=== PATIENT | female | born 1990 | race Caucasian/White ===

== ENCOUNTER 2019-02-11 11:27 | Outpatient (CLI) | payer MEDICAID, SELFPAY ==
[2019-02-11 13:32] LABS: ALT 22 U/L (12-78); AST 19 U/L (15-37); Albumin 3.3 g/dL (3.4-5.0); Alkaline Phosphatase 112 U/L (46-116); Anion Gap 11.9 mmol/L (3-11); BUN 11 mg/dL (7-18); Bilirubin, Total 0.4 mg/dL (0.2-1.0); CO2 23.1 mmol/L (21.0-32.0); CREATININE 0.62 mg/dL (0.55-1.02); Calcium 8.8 mg/dL (8.5-10.1); Chloride 106 mmol/L (98-107); Cholesterol 187 mg/dL (50-200); Glucose 85 mg/dL (70-100); HDL Cholesterol 62 mg/dL (40-60); LDL CHOLESTEROL 104 mg/dL (<100); Potassium 4.4 mmol/L (3.5-5.1); Sodium 141 mmol/L (136-145); Triglyceride 94 mg/dL (30-150)
== END 2019-02-11 11:47 ==
PROVIDERS: PCP Family Medicine; Visit Provider Family Medicine
DX: Z13.220 Encounter for screening for lipoid disorders (principal); Z13.228 Encounter for screening for other metabolic disorders
CPT/HCPCS: 36415; 80053; 80061; 83721

== ENCOUNTER 2019-02-16 13:47 | Emergency (ER) | payer MEDICAID, SELFPAY ==
[2019-02-16 13:56] VITALS: BP 133/77; PULSE 110; RESP 19; TEMP 36.6; O2SAT 96
--- NOTE | 2019-02-16 15:03 | DI.RAD_ITS ---
SYMPTOMS/DIAGNOSIS: LACERATION S/P PUNCHING WINDOW, ? FOREIGN BODY RIGHT FOREARM: No acute fracture or dislocation is seen. No radiopaque foreign bodies are seen in the soft tissues. IMPRESSION: No acute abnormality.
--- NOTE | 2019-02-16 15:09 | NUR.NOTE ---
pt states she has not taken any of her medications for 2 months Nursing Note:
--- NOTE | 2019-02-16 16:48 | W.ED.GENAD ---
Discharge Plan Disposition Patient Disposition: HOME Condition: Improving Discharge Details Chief Complaint: Laceration Clinical Impression: Laceration of forearm, right Primary Care Provider: Jason Otero ED Provider: Peter Connors Home Meds and New Rx's Prescriptions: No Action escitalopram oxalate 10 mg tablet 10 mg PO DAILY Qty: 30 RF: 3 buspirone 7.5 mg tablet 7.5 mg PO BID Qty: 60 RF: 3 valacyclovir 500 mg tablet 500 mg PO BID Qty: 6 RF: 3 dextroamphetamine-amphetamine [Adderall] 20 mg tablet 20 mg PO BID RF: 0 Discharge Instructions Instructions: Laceration (ED) Additional Instructions: Please keep dressing on for the next 48 hours and then keep wound clean and dry. Return immediately for any signs of infection. Otherwise return to emergency department in 12 to 14 days for suture removal. Referrals: [facility] Emergency Dept. [Outside] (Return in 12 to 14 days for suture removal. ) Discharge Data Discharge Date/Time-TO BE ENTERED AT DEPARTURE: 02/16/19 16:55 Medical Decision Making Patient presenting to the emergency department for chief complaint of laceration and right arm injury. She states that she was upset and punched a piece of glass which broke causing a laceration patient denies any suicidal ideations or homicidal ideations. Patient has a 6.5 cm laceration right forearm. Adipose tissue exposed otherwise deep structures are intact no muscle nerve or tendon damage is noted. other secondary minor abrasions and cuts to the dorsal aspects of the fingers and above the distal ulna. No palpable foreign body is noted but given the patient states she punched a glass. Radiological imaging performed to visualize radiopaque foreign body. No foreign body was noted. #9 sutures placed please see procedure note. Patient to return in 12 to 14 days for suture removal. Return precautions discussed. After discussion of diagnosis and plan of care patient has no further needs, questions, or concerns and states clear understanding to return to the emergency department for any worsening symptoms. HPI General Mode of arrival: ambulatory. Date/Time Provider Initiated Documentation: 02/16/19 13:59. Limitations to Documentation: no limitations. Information obtained by: patient and RN notes reviewed. History of Present Illness 29 year old F presents to the emergency department with the chief complaint of right arm laceration, described as severe, with intensity rated at 10. Quality is described as sharp, and is localized to the right and upper extremity. Patient reports no radiation. Patient started experiencing this hour(s) (1) and it has been constant. Patient notes no other symptoms.. Patient did receive the following treatments prior to arrival, none Related Data Home Medications Medication Instructions Recorded Confirmed buspirone 7.5 mg tablet 7.5 mg PO BID #60 tab 08/29/18 08/29/18 escitalopram 10 mg tablet 10 mg PO DAILY #30 tab 08/29/18 08/29/18 valacyclovir 500 mg tablet 500 mg PO BID #6 tab 08/29/18 08/29/18 dextroamphetamine-amphetamine 20 20 mg PO BID 12/10/18 mg tablet Previous Rx's Medication Instructions Recorded buspirone 7.5 mg tablet 7.5 mg PO BID #60 tab 08/29/18 escitalopram 10 mg tablet 10 mg PO DAILY #30 tab 08/29/18 valacyclovir 500 mg tablet 500 mg PO BID #6 tab 08/29/18 Allergies Allergy/AdvReac Type Severity Reaction Status Date / Time latex Allergy Unverified 02/16/19 14:01 General Stated Complaint: Laceration MAXINE: 3 Review of Systems Cardiovascular Denies syncope and Denies lightheadedness Musculoskeletal Denies deformity, Denies limited range of motion and Denies numbness Integumentary/Breasts Reports as per HPI Neurologic Denies syncope, Denies numbness and Denies paresthesias [facility] Medical History Borderline personality disorder (04/21/13) PTSD (post-traumatic stress disorder) Depression ADHD (attention deficit hyperactivity disorder) Asthma Alcoholism (Acute) Kidney infection Surgical History Hx of oral surgery (Acute) Family History Father Asthma Mother Borderline personality disorder Maternal Grandfather Alcohol abuse Depression Maternal Grandmother Alcohol abuse Social History Smoking/Tobacco Use Status: Former Tobacco Use Alcohol Intake: current Drug use: Current Sobriety Substance use type: former substance user Adopted: Yes Do you think of yourself as: straight/heterosexual Do you feel safe in your relationship?: Yes Exam Const General: cooperative and no acute distress Orientation: alert, awake and oriented x3 Limitations: mental status not altered Resp Effort & Inspection: normal respiratory effort and able to speak in complete sentences Cardio Rate: regular rate Rhythm: regular rhythm Neuro General: alert, awake, oriented x3, gait normal, tone normal, moves all extremities, normal light touch, pain and propioception and no focal motor deficits Motor: no movement abnormalities noted Sensory Exam: no sensory deficits noted Extrem General: normal exam except as noted Right upper extremity: elbow/forearm Details: laceration (6.5 cm ) and hand Details: abrasion Location: of the 3rd digit, of the 4th digit and of the 5th digit Course Vital Signs Temperature 36.6 C 02/16/19 13:56 Pulse 110 H 02/16/19 13:56 Respiratory Rate 02/16/19 13:56 Blood Pressure 133/77 02/16/19 13:56 Pulse Oximetry 96 02/16/19 13:56 Temperature 36.6 C 02/16/19 13:56 Temperature Source Temporal Artery Scan 02/16/19 13:56 Pulse 110 H 02/16/19 13:56 Respiratory Rate 19 02/16/19 13:56 Respiratory Effort 02/16/19 14:00 Blood Pressure 133/77 02/16/19 13:56 Blood Pressure Position Sitting 02/16/19 13:56 Pulse Oximetry 96 02/16/19 13:56 Oxygen Delivery Method Room Air 02/16/19 13:56 Oxygen Flow Rate 0 02/16/19 13:56 Pain Level 10 02/16/19 13:56 Procedures Laceration Laceration 1: Site: upper extremity Side (If applicable): right Size (cm): 6.5 Description: linear Depth: simple, single layer Local Anesthetic: Lidocaine 1% and with Epi Amount of anesthesia used (mL): 14 Pre-repair: wound explored, irrigated extensively and deep structures intact Skin layer closed with: nylon Size (cm): 3-0 Number of sutures: 9 Technique: simple, interrupted
[2019-02-16 16:52] VITALS: BP 100/45; PULSE 73; RESP 16; TEMP 37; O2SAT 100
--- NOTE | 2019-02-16 16:52 | ED.GENADUL_ITS ---
Discharge Plan Disposition Patient Disposition: HOME Condition: Improving Discharge Details Chief Complaint: Laceration Clinical Impression: Laceration of forearm, right Primary Care Provider: Jason Otero ED Provider: Peter Connors Home Meds and New Rx's Prescriptions: No Action escitalopram oxalate 10 mg tablet 10 mg PO DAILY Qty: 30 RF: 3 buspirone 7.5 mg tablet 7.5 mg PO BID Qty: 60 RF: 3 valacyclovir 500 mg tablet 500 mg PO BID Qty: 6 RF: 3 dextroamphetamine-amphetamine [Adderall] 20 mg tablet 20 mg PO BID RF: 0 Discharge Instructions Instructions: Laceration (ED) Additional Instructions: Please keep dressing on for the next 48 hours and then keep wound clean and dry. Return immediately for any signs of infection. Otherwise return to emergency department in 12 to 14 days for suture removal. Referrals: [facility] Emergency Dept. [Outside] (Return in 12 to 14 days for suture removal. ) Discharge Data Discharge Date/Time-TO BE ENTERED AT DEPARTURE: 02/16/19 16:55 Medical Decision Making Patient presenting to the emergency department for chief complaint of laceration and right arm injury. She states that she was upset and punched a piece of glass which broke causing a laceration patient denies any suicidal ideations or homicidal ideations. Patient has a 6.5 cm laceration right forearm. Adipose tissue exposed otherwise deep structures are intact no muscle nerve or tendon damage is noted. other secondary minor abrasions and cuts to the dorsal aspects of the fingers and above the distal ulna. No palpable foreign body is noted but given the patient states she punched a glass. Radiological imaging performed to visualize radiopaque foreign body. No foreign body was noted. #9 sutures placed please see procedure note. Patient to return in 12 to 14 days for suture removal. Return precautions discussed. After discussion of diagnosis and plan of care patient has no further needs, questions, or concerns and states clear understanding to return to the emergency department for any worsening symptoms. HPI General Mode of arrival: ambulatory . Date/Time Provider Initiated Documentation: 02/16/19 13:59 . Limitations to Documentation: no limitations . Information obtained by: patient and RN notes reviewed . History of Present Illness 29 year old F presents to the emergency department with the chief complaint of right arm laceration, described as severe, with intensity rated at 10. Quality is described as sharp, and is localized to the right and upper extremity. Patient reports no radiation. Patient started experiencing this hour(s) (1) and it has been constant. Patient notes no other symptoms.. Patient did receive the following treatments prior to arrival, none Related Data Home Medications Medication Instructions Recorded Confirmed buspirone 7.5 mg tablet 7.5 mg PO BID #60 tab 08/29/18 08/29/18 escitalopram 10 mg tablet 10 mg PO DAILY #30 tab 08/29/18 08/29/18 valacyclovir 500 mg tablet 500 mg PO BID #6 tab 08/29/18 08/29/18 dextroamphetamine-amphetamine 20 20 mg PO BID 12/10/18 mg tablet Previous Rx's Medication Instructions Recorded buspirone 7.5 mg tablet 7.5 mg PO BID #60 tab 08/29/18 escitalopram 10 mg tablet 10 mg PO DAILY #30 tab 08/29/18 valacyclovir 500 mg tablet 500 mg PO BID #6 tab 08/29/18 Allergies Allergy/AdvReac Type Severity Reaction Status Date / Time latex Allergy Unverified 02/16/19 14:01 General Stated Complaint: Laceration MAXINE: 3 Review of Systems Cardiovascular Denies syncope and Denies lightheadedness Musculoskeletal Denies deformity, Denies limited range of motion and Denies numbness Integumentary/Breasts Reports as per HPI Neurologic Denies syncope, Denies numbness and Denies paresthesias [facility] Medical History Borderline personality disorder (04/21/13) PTSD (post-traumatic stress disorder) Depression ADHD (attention deficit hyperactivity disorder) Asthma Alcoholism (Acute) Kidney infection Surgical History Hx of oral surgery (Acute) Family History Father Asthma Mother Borderline personality disorder Maternal Grandfather Alcohol abuse Depression Maternal Grandmother Alcohol abuse Social History Smoking/Tobacco Use Status: Former Tobacco Use Alcohol Intake: current Drug use: Current Sobriety Substance use type: former substance user Adopted: Yes Do you think of yourself as: straight/heterosexual Do you feel safe in your relationship?: Yes Exam Const General: cooperative and no acute distress Orientation: alert, awake and oriented x3 Limitations: mental status not altered Resp Effort & Inspection: normal respiratory effort and able to speak in complete sentences Cardio Rate: regular rate Rhythm: regular rhythm Neuro General: alert, awake, oriented x3, gait normal, tone normal, moves all extremities, normal light touch, pain and propioception and no focal motor deficits Motor: no movement abnormalities noted Sensory Exam: no sensory deficits noted Extrem General: normal exam except as noted Right upper extremity: elbow/forearm Details: laceration (6.5 cm ) and hand Details: abrasion Location: of the 3rd digit, of the 4th digit and of the 5th digit Course Vital Signs Temperature 36.6 C 02/16/19 13:56 Pulse 110 H 02/16/19 13:56 Respiratory Rate 02/16/19 13:56 Blood Pressure 133/77 02/16/19 13:56 Pulse Oximetry 96 02/16/19 13:56 Temperature 36.6 C 02/16/19 13:56 Temperature Source Temporal Artery Scan 02/16/19 13:56 Pulse 110 H 02/16/19 13:56 Respiratory Rate 19 02/16/19 13:56 Respiratory Effort 02/16/19 14:00 Blood Pressure 133/77 02/16/19 13:56 Blood Pressure Position Sitting 02/16/19 13:56 Pulse Oximetry 96 02/16/19 13:56 Oxygen Delivery Method Room Air 02/16/19 13:56 Oxygen Flow Rate 0 02/16/19 13:56 Pain Level 10 02/16/19 13:56 Procedures Laceration Laceration 1: Site: upper extremity Side (If applicable): right Size (cm): 6.5 Description: linear Depth: simple, single layer Local Anesthetic: Lidocaine 1% and with Epi Amount of anesthesia used (mL): 14 Pre-repair: wound explored, irrigated extensively and deep structures intact Skin layer closed with: nylon Size (cm): 3-0 Number of sutures: 9 Technique: simple, interrupted
== END 2019-02-16 16:55 | disposition home or self-care (01) ==
PROVIDERS: Emergency Provider Nurse Practitioner Family; PCP Family Medicine
DX: S51.811A Laceration without foreign body of right forearm, initial encounter (principal); W25.XXXA Contact with sharp glass, initial encounter
CPT/HCPCS: 12002; 73090

== ENCOUNTER 2019-02-27 10:20 | Emergency (ER) | payer MEDICAID, SELFPAY ==
[2019-02-27 10:24] VITALS: BP 118/70; PULSE 78; RESP 18; TEMP 36.5; O2SAT 97
--- NOTE | 2019-02-27 10:32 | ED.GENADUL_ITS ---
Discharge Plan Disposition Patient Disposition: HOME Condition: Improving Discharge Details Chief Complaint: SutureRem Clinical Impression: Visit for suture removal Primary Care Provider: Jason Otero ED Provider: Trey Dixon Home Meds and New Rx's Prescriptions: Continued escitalopram oxalate 10 mg tablet 10 mg PO DAILY Qty: 30 RF: 3 buspirone 7.5 mg tablet 7.5 mg PO BID Qty: 60 RF: 3 valacyclovir 500 mg tablet 500 mg PO BID Qty: 6 RF: 3 dextroamphetamine-amphetamine [Adderall] 20 mg tablet 20 mg PO BID RF: 0 Discharge Instructions Additional Instructions: Continue all regular medications. May use Band-Aid for additional 3 to 5 days time if needed. Resume normal routine and activities Medical Decision Making 29-year-old female presents for uneventful suture removal. The wound is well-appearing and she is in no acute distress. Sutures removed, dressing placed, patient stable for discharge to home. HPI General Mode of arrival: ambulatory . Date/Time Provider Initiated Documentation: 02/27/19 10:22 . Limitations to Documentation: no limitations . Information obtained by: patient . History of Present Illness 29 year old F presents to the emergency department with the chief complaint of Suture removal, no complaints, wound healing well, described as mild, Patient did receive the following treatments prior to arrival, none Related Data Home Medications Medication Instructions Recorded Confirmed buspirone 7.5 mg tablet 7.5 mg PO BID #60 tab 08/29/18 08/29/18 escitalopram 10 mg tablet 10 mg PO DAILY #30 tab 08/29/18 08/29/18 valacyclovir 500 mg tablet 500 mg PO BID #6 tab 08/29/18 08/29/18 dextroamphetamine-amphetamine 20 20 mg PO BID 12/10/18 mg tablet Previous Rx's Medication Instructions Recorded buspirone 7.5 mg tablet 7.5 mg PO BID #60 tab 08/29/18 escitalopram 10 mg tablet 10 mg PO DAILY #30 tab 08/29/18 valacyclovir 500 mg tablet 500 mg PO BID #6 tab 08/29/18 Allergies Allergy/AdvReac Type Severity Reaction Status Date / Time latex Allergy Unverified 02/27/19 10:28 General Stated Complaint: SutureRem MAXINE: 5 Review of Systems Review of Systems No fever, discharge, redness. 4 systems reviewed and otherwise [facility] Medical History Borderline personality disorder (04/21/13) PTSD (post-traumatic stress disorder) Depression ADHD (attention deficit hyperactivity disorder) Asthma Alcoholism (Acute) Kidney infection Surgical History Hx of oral surgery (Acute) Family History Father Asthma Mother Borderline personality disorder Maternal Grandfather Alcohol abuse Depression Maternal Grandmother Alcohol abuse Social History Smoking/Tobacco Use Status: Former Tobacco Use Alcohol Intake: current Drug use: Current Sobriety Substance use type: former substance user Adopted: Yes Do you think of yourself as: straight/heterosexual Do you feel safe in your relationship?: Yes Exam Narrative Exam Narrative: GEN: awake, alert, oriented 3. Pleasant, well groomed, interactive. HEAD: Normocephalic, atraumatic ENT: Mucous membranes moist, oropharynx unremarkable, External ear exam unremarkable EYES: PERRL, EOMI NECK: Full ROM, no KAMARI, no menigismus EXT: Full ROM, no edema, no rash. The right forearm has a healing approximately 3inch laceration without diastases. No erythema or discharge present Neuro: Grossly normal neurologic exam, conversant, interactive. Psych: Speech fluent, thoughts congruent, affect normal Course Vital Signs Temperature 36.5 C 02/27/19 10:24 Pulse 78 02/27/19 10:24 Respiratory Rate 18 02/27/19 10:24 Blood Pressure 118/70 02/27/19 10:24 Pulse Oximetry 97 02/27/19 10:24 Temperature 36.5 C 02/27/19 10:24 Temperature Source Skin 02/27/19 10:24 Pulse 78 02/27/19 10:24 Respiratory Rate 18 02/27/19 10:24 Blood Pressure 118/70 02/27/19 10:24 Blood Pressure Position Sitting 02/27/19 10:24 Pulse Oximetry 97 02/27/19 10:24 Oxygen Delivery Method Room Air 02/27/19 10:24 Oxygen Flow Rate 0 02/27/19 10:24
== END 2019-02-27 10:40 | disposition home or self-care (01) ==
PROVIDERS: Emergency Provider Emergency Medicine; PCP Family Medicine
DX: S51.82 Laceration with foreign body of forearm (principal); X58.XXXD Exposure to other specified factors, subsequent encounter; Z48.02 Encounter for removal of sutures

== ENCOUNTER 2019-03-02 16:18 | Outpatient (REF) | payer MEDICAID, SELFPAY ==
--- NOTE | 2019-03-02 16:00 | PAPFT_PTH ---
PATIENT: Kristen Santana LOC: [facility] U#:[id number] AGE/SX: 29/F ROOM: RE03/02/[address]: Jason Otero DO : 1990 BED: DIS: 03/02/2019 SPEC #: [id number] RECD: 03/02/19 18:05 STATUS: MINGO REQ #: [id number] KEVIN: 03/02/19 16:[address]: Oliva Aragon DEPT: [facility] Cytology RECD BY: Poonam Bustamante ENTERED: 03/02/19 18:05 SP TYPE: PAPFT OTHR DR: Jason Otero DO Tissues: 1 - CX/ENDOCX FOR PAP SMEARS Procedures: PAP THIN PREP/UVM Screening HPV DNA PROBE Comments: [id number] (CHLAMYDIA/GC) @ Ordering doctor for PAPFT edited from [place] to [place] @ by SARMAD at 03/09/19 1503 @ Ordering doctor for HPV edited from [place] to [place] @ by SARMAD at 03/09/19 1503 @ Submitting doctor edited from [place] to [place] @ by LABCASSANDRA at 03/09/19 1505
[2019-03-03 14:26] LABS: Chlamydia Result Negative; GC Result Negative; Specimen Description SEE COMMENTS
== END 2019-03-02 16:38 ==
LOC: LBN 16:18
PROVIDERS: PCP Family Medicine; Visit Provider Family Medicine
DX: Z11.3 Encounter for screening for infections with a predominantly sexual mode of transmission (principal); Z12.4 Encounter for screening for malignant neoplasm of cervix; Z11.51 Encounter for screening for human papillomavirus (HPV)
CPT/HCPCS: 87491; 87591; 88142; 87624

== ENCOUNTER 2019-03-12 01:32 | Outpatient (CLI) | payer MEDICAID, SELFPAY ==
--- NOTE | 2019-03-12 11:00 | SATEXT_ITS ---
Assessment: Kristen presents for nutritional counseling to improve her diet. She reports that she eats only processed food and she does very little cooking. She states that she is able to do some simple cooking. She eats Froot Loops or Honey Nut Cheerios for breakfast with whole milk. She has processed chicken or hot pockets for lunch, and she may just have cereal again for dinner or her boyfriend may cook. Nutritional Diagnosis: Poor nutritional quality of life related to knowledge deficit Intervention: We came up with a list of healthy foods that she likes and thus a meal plan of easy, budget friendly meals. Provided several easy, minimal prep recipes as well. Monitoring and Evaluation: Kristen has my contact information and may follow up with me at any time. Thank you for the referral. Total time spent with patient was 29 minutes.
== END 2019-03-12 01:52 ==
PROVIDERS: PCP Family Medicine; Visit Provider Dietitian, Registered
DX: E66.3 Overweight (principal); Z68.37 Body mass index [BMI] 37.0-37.9, adult; Z71.3 Dietary counseling and surveillance
CPT/HCPCS: 97802

== ENCOUNTER 2019-04-21 19:52 | Emergency (ER) | payer MEDICAID, SELFPAY ==
[2019-04-21 20:03] VITALS: BP 120/75; PULSE 99; RESP 20; TEMP 37.2; O2SAT 98
--- NOTE | 2019-04-21 20:22 | W.ED.GENAD ---
Discharge Plan Disposition Patient Disposition: [facility] Condition: Stable Discharge Details Chief Complaint: PsychEval Clinical Impression: Depression Primary Care Provider: Jason Otero ED Provider: Estuardo Clark Home Meds and New Rx's Prescriptions: No Action buspirone 7.5 mg tablet 7.5 mg PO BID Qty: 60 RF: 3 escitalopram oxalate 20 mg tablet 20 mg PO DAILY Qty: 90 RF: 0 dextroamphetamine-amphetamine [Adderall] 20 mg tablet 20 mg PO BID RF: 0 valacyclovir 500 mg tablet 500 mg PO BID PRNRF: 0 Discharge Data Discharge Date/Time-TO BE ENTERED AT DEPARTURE: 04/22/19 11:13 Medical Decision Making <Karan Wagner MD - Last Filed: 04/27/19 16:02> 29 yo female with previous hx of depression comes in with 1 week of increased depression and tonight had thoughts of wanting to cut her self to harm her and was brought here. Didn't actually make attempt to harm herself. She denies any fevers or infectious symptoms, no unexplained weight loss or night sweats, no findings on history or physical exam (normal neuro exam, steady gait) to suggest underlying medical causes for her increased depression such as infection or endocrine abnormality. She has hx of this and has been hospitalized in the past for her depression. She is currently reading a 0 on a breathlyzer and is clinically not intoxicated or under the influence of drugs and denies drug use. Will have mental health evaluate as she is medically cleared labs show nonspecific mild leukocytosis of 13 without infectious symptoms, do not feel this requires further w/u at this time. Mild anion gap of 13 as well likely from a mild dehydration as she was outside not drinking much fluid today. She has seen mental health and they are reaching out to hospitals Differential Diagnosis depression, si, ptsd, personality disorder Lab Data Lab results reviewed: Yes I reviewed the patient's lab results. <Estuardo Clark DO - Last Filed: 04/22/19 08:41> The case was signed out to me by my colleague Karan Wagner. Patient remained stable. We are pending Dr. gallardo for transfer at that time. [place] nurse practitioner Angelo Nguyen is contacted us, and I discussed the case in full with her. Patient will be transferred [facility] and admitted under . I have extensively reviewed the treatment plan with the patient. I have addressed all patient concerns at this time. I have also discussed the plan with the admitting physician and they agree with the current assessment and plan and have agreed to assume responsibility for the patient. All parties demonstrate verbal understanding and agreement with our assessment and plan at this time. Patient is still voluntary at this time. At time of transfer the patient was reassessed and continued to demonstrate current medical stability. No signs of acute respiratory distress requiring intubation, hemodynamic instability requiring pressor support, or rapidly declining mental status. The patient is stable for transport. HPI <Karan Wagner MD - Last Filed: 04/27/19 16:02> General Mode of arrival: EMS. Date/Time Provider Initiated Documentation: 04/21/19 20:02. Limitations to Documentation: no limitations. Information obtained by: patient. History of Present Illness 29 year old F presents to the emergency department with the chief complaint of depression, described as moderate, Patient reports no radiation. Patient started experiencing this week(s) (1) No relieving factors improve symptom(s), No exacerbating factors reported . Patient did receive the following treatments prior to arrival, none Related Data Home Medications Medication Instructions Recorded Confirmed buspirone 7.5 mg tablet 7.5 mg PO BID #60 tab 08/29/18 04/21/19 dextroamphetamine-amphetamine 20 20 mg PO BID 12/10/18 04/21/19 mg tablet escitalopram 20 mg tablet 20 mg PO DAILY #90 tab 03/02/19 04/21/19 valacyclovir 500 mg PO BID PRN 04/21/19 04/21/19 Previous Rx's Medication Instructions Recorded buspirone 7.5 mg tablet 7.5 mg PO BID #60 tab 08/29/18 escitalopram 20 mg tablet 20 mg PO DAILY #90 tab 03/02/19 Allergies Allergy/AdvReac Type Severity Reaction Status Date / Time latex Allergy Verified 03/02/19 15:05 General Stated Complaint: PsychEval MAXINE: 2 Review of Systems <Karan Wagner MD - Last Filed: 04/27/19 16:02> Review of Systems All systems reviewed & are unremarkable except as noted in HPI and below Constitutional Denies chills, Denies fever(s) and Denies weakness Cardiovascular Denies chest pain and Denies dyspnea Respiratory Denies cough and Denies dyspnea Gastrointestinal Denies abdominal pain, Denies nausea and Denies vomiting Neurologic Denies weakness PFSH <Karan Wagner MD - Last Filed: 04/27/19 16:02> Medical History Borderline personality disorder (04/21/13) PTSD (post-traumatic stress disorder) Depression ADHD (attention deficit hyperactivity disorder) Asthma Alcoholism (Acute) Kidney infection Surgical History H/O tubal ligation (Inactive ~01/2017) Hx of oral surgery (Acute) Social History Smoking/Tobacco Use Status: Former Tobacco Use Tobacco: How many years used: 20 Alcohol Intake: current Alcohol Intake frequency: holidays/special occasions only Alcohol type: beer Drug use: Current Sobriety Substance use type: former substance user Details: 1 24 oz twisted tea, 1 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 Adopted: Yes Household members: significant other and children Number of Children: 1 Communication Needs: Corrective Lenses Education Level: high school current occupation: disabled Do you think of yourself as: straight/heterosexual What is your relationship status?: living with partner Panel score (0-1 are the most socially isolated patients): 1 What type of physical activity do you participate in: none Seatbelt use: always Drive intox or ride w/intox cement truck driver: No Water heater temp set <120 deg: Yes Working smoke detector in home: Yes Carbon monox detector in home: Yes Do you feel safe at home: Yes Do you feel safe in your relationship?: Yes Victim of physical abuse: No Victim of emotional abuse: No Victim of sexual abuse: No Exam <Karan Wagner MD - Last Filed: 04/27/19 16:02> Const General: no acute distress Orientation: alert HENMT Head: normal to inspection Ears: external ears normal General nose exam: external nose normal Mouth: moist mucous membranes Eyes General: appearance normal, both eyes and all related structures Neck Neck: normal visual inspection Resp Effort & Inspection: normal respiratory effort and able to speak in complete sentences Cardio Rate: regular rate Skin General skin exam: no rashes or lesions noted Neuro General: alert and oriented x3 Extrem General: normal to inspection Psych Appearance: well kempt Mental Status: mental status grossly normal Course <Karan Wagner MD - Last Filed: 04/27/19 16:02> Vital Signs Temperature 37.2 C 04/21/19 20:03 Pulse 99 H 04/21/19 20:03 Respiratory Rate 20 04/21/19 20:03 Blood Pressure 120/75 04/21/19 20:03 Pulse Oximetry 98 04/21/19 20:03 Temperature 37.2 C 04/21/19 20:03 Temperature Source Temporal Artery Scan 04/21/19 20:03 Pulse 99 H 04/21/19 20:03 Respiratory Rate 20 04/21/19 20:03 Respiratory Effort Non-Labored 04/21/19 20:07 Blood Pressure 120/75 04/21/19 20:03 Blood Pressure Position Sitting 04/21/19 20:03 Pulse Oximetry 98 04/21/19 20:03 Pain Level 0 04/21/19 20:03 Lab/Test Results Lab/Test Results: POC- Test(urine) Negative Sign Out <Karan Wagner MD - Last Filed: 04/27/19 16:02> Sign Out Data: Sign Out Comment: pending voluntary psychiatric bed placement Last updated by Karan Wagner MD at 04/22/19 04:35
--- NOTE | 2019-04-21 20:26 | ED.GENADUL_ITS ---
Discharge Plan Disposition Patient Disposition: [facility] Condition: Stable Discharge Details Chief Complaint: PsychEval Clinical Impression: Depression Primary Care Provider: Jason Otero ED Provider: Estuardo Clark Home Meds and New Rx's Prescriptions: No Action buspirone 7.5 mg tablet 7.5 mg PO BID Qty: 60 RF: 3 escitalopram oxalate 20 mg tablet 20 mg PO DAILY Qty: 90 RF: 0 dextroamphetamine-amphetamine [Adderall] 20 mg tablet 20 mg PO BID RF: 0 valacyclovir 500 mg tablet 500 mg PO BID PRNRF: 0 Discharge Data Discharge Date/Time-TO BE ENTERED AT DEPARTURE: 04/22/19 11:13 Medical Decision Making <Karan Wagner MD - Last Filed: 04/27/19 16:02> 29 yo female with previous hx of depression comes in with 1 week of increased depression and tonight had thoughts of wanting to cut her self to harm her and was brought here. Didn't actually make attempt to harm herself. She denies any fevers or infectious symptoms, no unexplained weight loss or night sweats, no findings on history or physical exam (normal neuro exam, steady gait) to suggest underlying medical causes for her increased depression such as infection or endocrine abnormality. She has hx of this and has been hospitalized in the past for her depression. She is currently reading a 0 on a breathlyzer and is clinically not intoxicated or under the influence of drugs and denies drug use. Will have mental health evaluate as she is medically cleared labs show nonspecific mild leukocytosis of 13 without infectious symptoms, do not feel this requires further w/u at this time. Mild anion gap of 13 as well likely from a mild dehydration as she was outside not drinking much fluid today. She has seen mental health and they are reaching out to hospitals Differential Diagnosis depression, si, ptsd, personality disorder Lab Data Lab results reviewed: Yes I reviewed the patient's lab results. <Estuardo Clark DO - Last Filed: 04/22/19 08:41> The case was signed out to me by my colleague Karan Wagner. Patient remained stable. We are pending Dr. gallardo for transfer at that time. [place] nurse practitioner Angelo Nguyen is contacted us, and I discussed the case in full with her. Patient will be transferred [facility] and admitted under . I have extensively reviewed the treatment plan with the patient. I have addressed all patient concerns at this time. I have also discussed the plan with the admitting physician and they agree with the current assessment and plan and have agreed to assume responsibility for the patient. All parties demonstrate verbal understanding and agreement with our assessment and plan at this time. Patient is still voluntary at this time. At time of transfer the patient was reassessed and continued to demonstrate current medical stability. No signs of acute respiratory distress requiring intubation, hemodynamic instability requiring pressor support, or rapidly declining mental status. The patient is stable for transport. HPI <Karan Wagner MD - Last Filed: 04/27/19 16:02> General Mode of arrival: EMS . Date/Time Provider Initiated Documentation: 04/21/19 20:02 . Limitations to Documentation: no limitations . Information obtained by: patient . History of Present Illness 29 year old F presents to the emergency department with the chief complaint of depression, described as moderate, Patient reports no radiation. Patient started experiencing this week(s) (1) No relieving factors improve symptom(s), No exacerbating factors reported . Patient did receive the following treatments prior to arrival, none Related Data Home Medications Medication Instructions Recorded Confirmed buspirone 7.5 mg tablet 7.5 mg PO BID #60 tab 08/29/18 04/21/19 dextroamphetamine-amphetamine 20 20 mg PO BID 12/10/18 04/21/19 mg tablet escitalopram 20 mg tablet 20 mg PO DAILY #90 tab 03/02/19 04/21/19 valacyclovir 500 mg PO BID PRN 04/21/19 04/21/19 Previous Rx's Medication Instructions Recorded buspirone 7.5 mg tablet 7.5 mg PO BID #60 tab 08/29/18 escitalopram 20 mg tablet 20 mg PO DAILY #90 tab 03/02/19 Allergies Allergy/AdvReac Type Severity Reaction Status Date / Time latex Allergy Verified 03/02/19 15:05 General Stated Complaint: PsychEval MAXINE: 2 Review of Systems <Karan Wagner MD - Last Filed: 04/27/19 16:02> Review of Systems All systems reviewed & are unremarkable except as noted in HPI and below Constitutional Denies chills, Denies fever(s) and Denies weakness Cardiovascular Denies chest pain and Denies dyspnea Respiratory Denies cough and Denies dyspnea Gastrointestinal Denies abdominal pain, Denies nausea and Denies vomiting Neurologic Denies weakness PFSH <Karan Wagner MD - Last Filed: 04/27/19 16:02> Medical History Borderline personality disorder (04/21/13) PTSD (post-traumatic stress disorder) Depression ADHD (attention deficit hyperactivity disorder) Asthma Alcoholism (Acute) Kidney infection Surgical History H/O tubal ligation (Inactive ~01/2017) Hx of oral surgery (Acute) Social History Smoking/Tobacco Use Status: Former Tobacco Use Tobacco: How many years used: 20 Alcohol Intake: current Alcohol Intake frequency: holidays/special occasions only Alcohol type: beer Drug use: Current Sobriety Substance use type: former substance user Details: 1 24 oz twisted tea, 1 24oz bud light HR COORDINATOR Adopted: Yes Household members: significant other and children Number of Children: 1 Communication Needs: Corrective Lenses Education Level: high school current occupation: disabled Do you think of yourself as: straight/heterosexual What is your relationship status?: living with partner Panel score (0-1 are the most socially isolated patients): 1 What type of physical activity do you participate in: none Seatbelt use: always Drive intox or ride w/intox vending route driver: No Water heater temp set <120 deg: Yes Working smoke detector in home: Yes Carbon monox detector in home: Yes Do you feel safe at home: Yes Do you feel safe in your relationship?: Yes Victim of physical abuse: No Victim of emotional abuse: No Victim of sexual abuse: No Exam <Karan Wagner MD - Last Filed: 04/27/19 16:02> Const General: no acute distress Orientation: alert HENMT Head: normal to inspection Ears: external ears normal General nose exam: external nose normal Mouth: moist mucous membranes Eyes General: appearance normal, both eyes and all related structures Neck Neck: normal visual inspection Resp Effort & Inspection: normal respiratory effort and able to speak in complete sentences Cardio Rate: regular rate Skin General skin exam: no rashes or lesions noted Neuro General: alert and oriented x3 Extrem General: normal to inspection Psych Appearance: well kempt Mental Status: mental status grossly normal Course <Karan Wagner MD - Last Filed: 04/27/19 16:02> Vital Signs Temperature 37.2 C 04/21/19 20:03 Pulse 99 H 04/21/19 20:03 Respiratory Rate 20 04/21/19 20:03 Blood Pressure 120/75 04/21/19 20:03 Pulse Oximetry 98 04/21/19 20:03 Temperature 37.2 C 04/21/19 20:03 Temperature Source Temporal Artery Scan 04/21/19 20:03 Pulse 99 H 04/21/19 20:03 Respiratory Rate 20 04/21/19 20:03 Respiratory Effort Non-Labored 04/21/19 20:07 Blood Pressure 120/75 04/21/19 20:03 Blood Pressure Position Sitting 04/21/19 20:03 Pulse Oximetry 98 04/21/19 20:03 Pain Level 0 04/21/19 20:03 Lab/Test Results Lab/Test Results: POC- Test(urine) Negative Sign Out <Karan Wagner MD - Last Filed: 04/27/19 16:02> Sign Out Data: Sign Out Comment: pending voluntary psychiatric bed placement Last updated by Karan Wagner MD at 04/22/19 04:35
[2019-04-21 20:35] LABS: Abs Immature Grans 0.02 k/cumm (0.0-0.09); Absolute Basophil Count 0.03 k/cumm (0.0-0.2); Absolute Eosinophil Count 0.05 k/cumm (0.0-0.7); Absolute Lymphocyte Count 2.97 k/cumm (1.2-3.4); Absolute Neutrophil Count 9.53 k/cumm (1.2-6.7); Basophils % 0.2; Eosinophils % 0.4; HCT 38.9 % (36.0-46.0); HGB 12.8 g/dL (12.0-15.5); Immature Grans % 0.1; Mean Corp. HGB Concentration 32.9 g/dL (32.0-36.0); Mean Corpuscular Hemoglobin 27.6 pg (27.0-33.0); Mean Platelet Volume 10.3 fL (8.0-11.0); Monocytes % 6.7; Neutrophils % 70.6; Platelet Count 393 x1000/uL (130-400); RBC 4.63 m/cumm (4.00-5.20); RBC Distribution Width 14.6 % (11.7-14.6)
[2019-04-21 20:41] LABS: Bilirubin Negative (Negative); Blood Trace-intact (Negative); Clarity Clear (Clear); Glucose Negative (Negative); Ketones 15 mg/dL (Negative); Leukocyte Esterase Trace (Negative); Nitrite Negative (Negative); Urobilinogen 0.2 EU/dL (Up TO 0.2); pH 5.5 (5-8)
[2019-04-21 20:57] LABS: *AMPHETAMINES SCREEN URINE POSITIVE (Negative); *BARBITURATES SCREEN URINE Negative (Negative); *BENZODIAZEPINES SCREEN URINE Negative (Negative); Cannabinoids THC Negative (Negative); Cocaine Screen,Urine Negative (Negative); METHADONE URINE SCREEN Negative (Negative); OPIATES URINE SCREEN Negative (Negative)
[2019-04-21 21:01] LABS: RBC Negative (0-2); Tricyclic Antidepressants Negative (Negative)
[2019-04-21 21:02] LABS: Bacteria Moderate HPF (Negative); C & S Indicated? No/Sq. Contamination; Casts Negative LPF (Negative); Crystals Negative HPF (Negative); Epithelial Cells Many HPF (Negative); Mucus Negative (Negative)
[2019-04-21 21:03] LABS: Salicylate < 2.8 mg/dL (2.8-20.0)
[2019-04-21 21:05] LABS: ALT 21 U/L (12-78); AST 12 U/L (15-37); Albumin 3.6 g/dL (3.4-5.0); Alkaline Phosphatase 121 U/L (46-116); Anion Gap 13.7 mmol/L (3-11); BUN 7 mg/dL (7-18); Bilirubin, Total 0.3 mg/dL (0.2-1.0); CO2 20.3 mmol/L (21.0-32.0); CREATININE 0.92 mg/dL (0.55-1.02); Calcium 8.7 mg/dL (8.5-10.1); Chloride 106 mmol/L (98-107); Glucose 137 mg/dL (70-100); Potassium 3.2 mmol/L (3.5-5.1); Sodium 140 mmol/L (136-145); Total Protein 8.5 g/dL (6.4-8.2)
[2019-04-21 21:09] LABS: Acetaminophen < 2 ug/mL (10-30)
[2019-04-21 21:15] LABS: ETHANOL BLOOD < 3.0 mg/dL (<3)
--- NOTE | 2019-04-21 22:46 | PDOC.MHCN ---
Date of service: 04/21/19 Time of Service: 22:46 Mental Health Crisis Note Presenting Issue How did you arrive at the ED and why did you come: Krisetn comes to the ER by ambulance due to suicidal ideation with plan. Precipitating Factors Kristen reports current suicidal ideation with plan of cutting her wrists with a crepe box tender. She reports that she has struggled with depression and anxiety for many years and that over the past few weeks her depression has been worsening. She shares that she is prescribed medications for depression and anxiety but she stopped taking them a few weeks ago because she felt the medications were not working. Kristen feels that she is not safe to return home and is asking for a voluntary hospitalization. Considering her history of three previous suicide attempts with subsequent psychiatric hospitalizations, I feel hospitalization is appropriate at this time. Disposition BEHAVIOR: Cooperative. EYE CONTACT: Good. MOOD: Depressed. AFFECT: Anxious. APPETITE: Good. SLEEP(trouble falling/staying asleep: Good. Plan Plan is to seek a voluntary [facility], and [facility] accept referrals for review. A huddle is done and a care plan is created. Kristen will remain at [facility] until a placement can be secured for her. Signature Clinician's Name/Title: Mare Jean-Baptiste BA [facility] Tape Recorder Repairer
--- NOTE | 2019-04-21 22:53 | PDOC.MHCN_ITS ---
Date of service: 04/21/19 Time of Service: 22:46 Mental Health Crisis Note Presenting Issue How did you arrive at the ED and why did you come: Kristen comes to the ER by ambulance due to suicidal ideation with plan. Precipitating Factors Kristen reports current suicidal ideation with plan of cutting her wrists with a boxing machine operator. She reports that she has struggled with depression and anxiety for many years and that over the past few weeks her depression has been worsening. She shares that she is prescribed medications for depression and anxiety but she stopped taking them a few weeks ago because she felt the medications were not working. Kristen feels that she is not safe to return home and is asking for a voluntary hospitalization. Considering her history of three previous suicide attempts with subsequent psychiatric hospitalizations, I feel hospitalization is appropriate at this time. Disposition BEHAVIOR: Cooperative. EYE CONTACT: Good. MOOD: Depressed. AFFECT: Anxious. APPETITE: Good. SLEEP(trouble falling/staying asleep: Good. Plan Plan is to seek a [facility]. [facility], and [facility] accept referrals for review. A huddle is done and a care plan is created. Kristen will remain at [facility] until a placement can be secured for her. Signature Clinician's Name/Title: Mare Jean-Baptiste [facility] Hoisting Engineer
--- NOTE | 2019-04-21 23:05 | PDOC.ERCMPRO ---
Care Management Progress Note Kristen arrived at the ED stating that she has been depressed for several weeks and stopped taking her prescribed medictions because they did not work. Does not feel safe to go home because she may hurt herself with plan to cut her wrists with a cook box filler. She has had three previous suicide attempts followed by inpatient psychiatric admissions. Kristen is asking for help and is seeking inpatient psychiatric admission. VOLUNTARY FOR INPATIENT PSYCHIATRIC STABILIZATION. Kristen has been cooperative and fully engaged in interactions with staff member since arriving at [facility]; she has demonstrated appropriate coping and communication skills, has articulated her needs and concerns. Huddle Participants: Remedios RN; Liana, Baby Doctor, Mare [facility]/Statement Clerk, LINCOLN Christensen- Time and Date: 04/21/19 22:30PM Safety plan has been established with patient, and care team, to adhere to patient goals, identify restrictions based on behavioral status, address nutrition, and determine allowed personal belongings, tools for hygiene and personal care. Determine level of activity including ambulation, level of supervision, visitors, and determine privileges based on behaviors and level of engagement by pt. SAFETY PLAN: ED Room #5 KL 1. Will remain on suicide precautions and in paper clothes. 2. Will remain in room under direct supervision of one-on-one staff at all times provided by CPSO, NOAH, EVENT AV OPERATOR social director. 3. May have paper cups, plates, finger foods as well as a safety spoon with which to eat meals. 4. Follow [facility] Management of the Admitted Behavioral Health Patient policy. 5. Comfort bath system only. 6. May keep her eyeglasses and the new piercings at this time. 7. Mother and fiance, Rhett John, may visit. 8. May use phone to call Rhett and/or her mother. 9. Transfer to Transition Bed will be coordinated by the Baby Doctor based on staffing and bed availability. 10. May have TV if available 11. Voluntary Status, actively suicidal with a plan. Must call [facility] and provide re-evaluation prior to exit from the department if she wishes to leave. [facility] Statement Clerk or [facility] will be coordinating placement at inpatient facility, last updates included the following: There are no beds available tonight. [facility] and [facility] accepted referrals and will review in the morning. All 3 facilities have beds expected tomorrow. Patient is currently voluntarily at [facility] and seeking inpatient admission when a bed becomes available. [facility] Frontline Statement Clerk will continue seeking placement. Please contact the Cadmium Burner Machine Operator Packaging ([phone]) and [facility] Statement Clerk ([phone]) for any needed changes in the Safety Plan. Safety plan has been provided to interdepartmental care team including Clinical Coordinator , Nursing Court Reporter.
--- NOTE | 2019-04-21 23:38 | CMPROGNOTE_ITS ---
Care Management Progress Note Kristen arrived at the ED stating that she has been depressed for several weeks and stopped taking her prescribed medictions because they did not work. Does not feel safe to go home because she may hurt herself with plan to cut her wrists with a spinner box. She has had three previous suicide attempts followed by inpatient psychiatric admissions. Kristen is asking for help and is seeking inpatient psychiatric admission. VOLUNTARY FOR INPATIENT PSYCHIATRIC STABILIZATION. Kristen has been cooperative and fully engaged in interactions with staff member since arriving at [facility]; she has demonstrated appropriate coping and communication skills, has articulated her needs and concerns. Huddle Participants: Remedios RN; Liana, Veneer Press Operator, Mare [facility]/Order Expediter, LINCOLN Christensen- Time and Date: 04/21/19 22:30PM Safety plan has been established with patient, and care team, to adhere to patie nt goals, identify restrictions based on behavioral status, address nutrition, and determine allowed personal belongings, tools for hygiene and personal care. Determine level of activity including ambulation, level of supervision, visitors, and determine privileges based on behaviors and level of engagement by pt. SAFETY PLAN: ED Room #5 KL 1. Will remain on suicide precautions and in paper clothes. 2. Will remain in room under direct supervision of one-on-one staff at all times provided by CPSO, NOAH, AOC AIRSPACE CONTROL OFFICER luncheonette operator. 3. May have paper cups, plates, finger foods as well as a safety spoon with which to eat meals. 4. Follow [facility] Management of the Admitted Behavioral Health Patient policy. 5. Comfort bath system only. 6. May keep her eyeglasses and the new piercings at this time. 7. Mother and fiance, Rhett John, may visit. 8. May use phone to call Rhett and/or her mother. 9. Transfer to Transition Bed will be coordinated by the Veneer Press Operator based on staffing and bed availability. 10. May have TV if available 11. Voluntary Status, actively suicidal with a plan. Must call [facility] and provide re-evaluation prior to exit from the department if she wishes to leave. [facility] Order Expediter or [facility] will be coordinating placement at inpatient facility, last updates included the following: There are no beds available tonight. [facility] and [facility] accepted referrals and will review in the morning. All 3 facilities have beds expected tomorrow. Patient is currently voluntarily at [facility] and seeking inpatient admission when a bed becomes available. [facility] Frontline Order Expediter will continue seeking placement. Please contact the Lumber Racker Order Packer Or Packager ([phone]) and [facility] Order Expediter ([phone]) for any needed changes in the Safety Plan. Safety plan has been provided to interdepartmental care team including Clinical Coordinator , Nursing Mixing Plant Operator.
--- NOTE | 2019-04-21 23:38 | PDOC.CMSAFED ---
Care Management Safety Plan Safety plan has been established with patient, and care team, to adhere to patient goals, identify restrictions based on behavioral status, address nutrition, and determine allowed personal belongings, tools for hygiene and personal care. Determine level of activity including ambulation, level of supervision, visitors, and determine privileges based on behaviors and level of engagement by pt. SAFETY PLAN: ED Room #5 KL 1. Will remain on suicide precautions and in paper clothes. 2. Will remain in room under direct supervision of one-on-one staff at all times provided by CPSO, NOAH, GRADER GREEN MEAT diplomatic interpreter/translator. 3. May have paper cups, plates, finger foods as well as a safety spoon with which to eat meals. 4. Follow [facility] Management of the Admitted Behavioral Health Patient policy. 5. Comfort bath system only. 6. May keep her eyeglasses and the new piercings at this time. 7. Mother and fiance, Rhett John, may visit. 8. May use phone to call Rhett and/or her mother. 9. Transfer to Transition Bed will be coordinated by the Radio Equipment Repairer based on staffing and bed availability. 10. May have TV if available 11. Voluntary Status, actively suicidal with a plan. Must call [facility] and provide re-evaluation prior to exit from the department if she wishes to leave. [facility] Exercise Instruct or [facility] will be coordinating placement at inpatient facility, last updates included the following: There are no beds available [facility] and [facility] accepted referrals and will review in the morning. All 3 facilities have beds expected tomorrow. Patient is currently voluntarily at [facility] and seeking inpatient admission when a bed becomes available. [facility] Frontline Exercise Instruct will continue seeking placement. Please contact the [place] Product Development Worker ([phone]) and [facility] Exercise Instruct ([phone]) for any needed changes in the Safety Plan. Safety plan has been provided to interdepartmental care team including Clinical Coordinator , Nursing Farmworker [employer].
--- NOTE | 2019-04-21 23:39 | CMSP_ITS ---
Care Management Safety Plan Safety plan has been established with patient, and care team, to adhere to patient goals, identify restrictions based on behavioral status, address nutrition, and determine allowed personal belongings, tools for hygiene and personal care. Determine level of activity including ambulation, level of supervision, visitors, and determine privileges based on behaviors and level of engagement by pt. SAFETY PLAN: ED Room #5 KL 1. Will remain on suicide precautions and in paper clothes. 2. Will remain in room under direct supervision of one-on-one staff at all times provided by CPSO, NOAH, CHAIN SAW OPERATOR bromination equipment operator. 3. May have paper cups, plates, finger foods as well as a safety spoon with which to eat meals. 4. Follow [facility] Management of the Admitted Behavioral Health Patient policy. 5. Comfort bath system only. 6. May keep her eyeglasses and the new piercings at this time. 7. Mother and fiance, Rhett John, may visit. 8. May use phone to call Rhett and/or her mother. 9. Transfer to Transition Bed will be coordinated by the Laser Engineer based on staffing and bed availability. 10. May have TV if available 11. Voluntary Status, actively suicidal with a plan. Must call [facility] and provide re-evaluation prior to exit from the department if she wishes to leave. [facility] Automation Control Integrator or [facility] will be coordinating placement at inpatient facility, last updates included the following: There are no beds available [facility] and [facility] [place]errals and will review in the morning. All 3 facilities have beds expected tomorrow. Patient is currently voluntarily at [facility] and seeking inpatient admission when a bed becomes available. [facility] Frontline Automation Control Integrator will continue seeking placement. Please contact the Sales Financial Analyst Hotel Service Manager ([phone]) and [facility] Automation Control Integrator ([phone]) for any needed changes in the Safety Plan. Safety plan has been provided to interdepartmental care team including Clinical Coordinator , Nursing Printed Circuit Boards Router.
[2019-04-22] MEDS: LORazepam 1 MG TAB PO (00:15)
--- NOTE | 2019-04-22 09:17 | NUR.NOTE ---
Nursing Note: pt requesting breakfast, breakfast ordered.
== END 2019-04-22 11:13 | disposition short-term general hospital (02) ==
PROVIDERS: Emergency Medicine; Emergency Provider Student in an Organized Health Care Education/Training Program; PCP Family Medicine
DX: F32.9 Major depressive disorder, single episode, unspecified (principal); R45.851 Suicidal ideations; E86.0 Dehydration; Z91.5 Personal history of self-harm
CPT/HCPCS: 36415; 80053; 80307; 81025; 99285; 80320; 80329; 81003; 81015; 84443; 85025; 99284

== ENCOUNTER 2020-09-01 08:11 | Outpatient (CLI) | payer MEDICAID, SELFPAY ==
[2020-09-02 15:10] LABS: SARS-CoV-2 RNA Source Nasal/Nares
[2020-09-02 15:11] LABS: SARS-CoV-2 RNA Not Detected (NotDetected)
== END 2020-09-01 08:31 ==
PROVIDERS: PCP Family Medicine; Visit Provider Surgery
DX: Z01.818 Encounter for other preprocedural examination (principal)
CPT/HCPCS: U0003

== ENCOUNTER 2020-09-05 07:42 | Day surgery (SDC) | payer MEDICAID, SELFPAY ==
--- NOTE | 2020-09-05 06:45 | W.COLOREPORT ---
Date of service: 09/05/20 Time of Service: 10:02 Colonoscopy Report Date of procedure: 09/05/20 Pre-op diagnosis general: Rectal bleeding Post-op diagnosis procedure note: other (one benign polyp) Procedure: Colonoscopy with polypectomy Surgeon: Lynda Moreno Anesthesia proc note operative: other (General/ASA 2/Dhara Taveras CRNA) Estimated blood loss (mL): 3 Pathology: other (sigmoid polyp vs lymphoid aggregate) Complications: None Disposition: same day Indications: 30 year old female with a 1 week history of intermittant rectal bleeding and cramping abdominal pain before a BM. No constipation or diarrhea. No rectal pain. Discussed doing an anoscopy in the office today to look for internal hemorrhoids and if no hemorrhoids noted then proceed with colonoscopy. The patient is quite anxious as she doesn't know her family history and would rather proceed with a colonoscopy with possible hemorrhoid banding. Prep: Miralax/Dulcolax Procedure Start Time: 10:02 Procedure End Time: 10:25 Retraction Time: 17 minutes Findings: One small benign polyp Procedure Description: After informed consent was obtained the patient was taken to the procedure room and placed in a left decubitous position. Monitors were applied and a time out was done. The patients name, date of , procedure, allergies to medications and metal in their body was reviewed. The patient was then sedated. Once sedated and comfortable a rectal exam was done. External exam was normal. Internal exam revealed a normal sphincter tone and no palpable masses. The scope was then introduced and retro-flexed. No internal hemorrhoids were identified. The scope was then advanced to the cecum without difficulty. The ileocecal vlave and appendiceal orifice were identified. The prep was good. The scope was advanced into the terminal ileum which was normal. The scope was then slowly retracted over 17 minutes back into the rectum. A benign Polyp vs lymphoid aggregate was removed with cold forceps in the sigmoid colon. The scope was removed and the patient was woken up and taken back to Same day surgery in stable condition. The patient tolerated the procedure well and there were no immediate complications. Follow up: The patient should follow up at age 49 unless they develop changes in bowel habits or other new gastrointestinal complaints.
--- NOTE | 2020-09-05 06:46 | W.PM.DSUDISC ---
Discharge Plan Disposition Patient Disposition: HOME Condition: Good Discharge Details Reason For Visit: Colonoscopy Attending Provider: Lynda Moreno Primary Care Provider: Jason Otero Home Meds and New Rx's Prescriptions: Continued valacyclovir 500 mg tablet 500 mg PO BID PRNRF: 0 Discontinued bisacodyl [Dulcolax (bisacodyl)] 5 mg tablet,delayed release (DR/EC) 5 mg PO ONCE Qty: 4 RF: 0 polyethylene glycol 3350 17 gram powder in packet 255 g PO DAILY Qty: 15 RF: 0 Discharge Instructions Additional Instructions: Findings: one small benign polyp I didn't find a source for the bleeding Follow up: at age 49 Please call if you develop: fevers >101.5 Nausea or Vomiting Abdominal pain that is not transient DAY SURGERY UNIT POST ENDOSCOPY INSTRUCTIONS 1. Because there will be medication in your system for the next 24 hours, you may feel a little sleepy. Your coordination will be affected. Therefore: a. Do not drive or operate dangerous equipment for 24 hours. b. Do not drink alcohol beverages for 24 hours (not even beer). c. Plan to go home and rest for the day. 2. Generally there are no restrictions on your activity after a day or so has gone by, but you may feel a bit fatigued for a few days. 3 After you arrive home you may have a light meal and return to a normal diet as you can tolerate it without feeling sick to your stomach. 4. After surgery, you may feel pain or discomfort. This should be only transient, but if it persists please contact your doctor. 5. If there are any questions regarding the findings of your procedure, please feel free to contact your doctor. 6. If you are unable to contact your doctor with a problem, contact the hospital at [phone]. 7. Continue all your regular medications unless directed otherwise. I understand the above instructions and have no questions. Signature of Patient or Responsible Adult Escort Date/Time Name of Responsible Adult Escort Signature of Nurse Date/Time Activity:: Activity as Tolerated Diet:: high fiber diet Discharge Orders Discharge Orders: Discharge Order (Routine); Ordered 09/05/20 Ordered By: Lynda Moreno
[2020-09-05 08:03] VITALS: BP 119/69; PULSE 83; RESP 22; TEMP 36.4; O2SAT 95
[2020-09-05] MEDS: Lactated Ringers 1,000 ML 80 ML IV (08:29)
--- NOTE | 2020-09-05 10:25 | BOWEL_PTH ---
PATIENT: Kristen Santana LOC: [facility] U#:[id number] AGE/SX: 30/F ROOM: RE09/05/[address]: Lynda Moreno MD : 1990 BED: DIS: 09/05/2020 SPEC #: [id number] RECD: 09/05/20 12:30 STATUS: MINGO REQ #: [id number] KEVIN: 09/05/20 10:[address]: Lynda Moreno DEPT: Surgical Specimen RECD BY: Poonam Bustamante ENTERED: 09/05/20 12:30 SP TYPE: Bowel OTHR DR: Jason Otero DO Tissues: 1 - BIOPSY BOWEL Procedures: GROSS AND MICRO LEVEL 4 Comments: [id number] ([id number] [facility]
[2020-09-05 11:05] VITALS: BP 110/66; PULSE 63; RESP 22; TEMP 36; O2SAT 98
== END 2020-09-05 11:42 | disposition home or self-care (01) ==
LOC: SUR 07:43
PROVIDERS: PCP Family Medicine; Visit Provider Surgery
PROC: 0DJD8ZZ Inspection of Lower Intestinal Tract, Via Natural or Artificial Opening Endoscopic (ICD-10-PCS; CPT 45378; principal; 2020-09-05 09:00)
DX: K62.5 Hemorrhage of anus and rectum (principal); K63.5 Polyp of colon; R10.9 Unspecified abdominal pain; F41.9 Anxiety disorder, unspecified
CPT/HCPCS: 45380; 88305; J2001

== ENCOUNTER 2021-07-18 10:50 | Emergency (ER) | payer MEDICAID, SELFPAY ==
[2021-07-18 10:59] VITALS: BP 111/69; PULSE 99; RESP 18; TEMP 36.3; O2SAT 98
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
[2021-07-18] MEDS: Acetaminophen 500 MG TAB PO (11:39)
[2021-07-18] MEDS: Dexamethasone 10 MG/ML VIAL PO (11:39)
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
[2021-07-18 13:15] VITALS: BP 111/69; PULSE 99; RESP 18; TEMP 36.3; O2SAT 98
== END 2021-07-18 13:17 | disposition home or self-care (01) ==
PROVIDERS: Emergency Provider Registered Nurse Emergency; PCP Registered Nurse
DX: M54.2 Cervicalgia (principal); T76.11XA Adult physical abuse, suspected, initial encounter; Y07.03 Male partner, perpetrator of maltreatment and neglect; Y04.8XXA Assault by other bodily force, initial encounter
CPT/HCPCS: 81025; 99284; 70490; 99283; J1100

== ENCOUNTER 2023-06-12 15:13 | Outpatient (CLI) | payer MEDICAID, SELFPAY ==
[2023-06-12 15:15] LABS: Abs Immature Grans 0.04 10^3/uL (0.0-0.06); Absolute Basophil Count 0.06 10^3/uL (0.0-0.2); Absolute Eosinophil Count 0.09 10^3/uL (0.0-0.7); Absolute Lymphocyte Count 2.66 10^3/uL (1.2-3.4); Absolute Monocyte Count 0.71 10^3/uL (0.1-0.8); Absolute Neutrophil Count 7.74 10^3/uL (1.2-6.7); Basophils % 0.5; Eosinophils % 0.8; HCT 40.8 % (36.0-46.0); HGB 12.8 g/dL (11.2-15.7); Immature Grans % 0.4; Lymphocytes % 23.5; MCH 27.2 pg (27.0-33.0); MCHC 31.4 % (32.0-36.0); MCV 87 fL (80-95); MPV 10.3 fL (8.0-11.0); Monocytes % 6.3; Neutrophils % 68.5; Platelet Count 406 10^3/uL (130-400); RBC 4.71 10^6/uL (3.93-5.22); RDW 14.6 % (11.7-14.6); RDW-SD 46.5 fL
[2023-06-12 15:31] LABS: ALT 39 U/L (14-59); AST 22 U/L (15-37); Albumin 3.5 g/dL (3.4-5.0); Alkaline Phosphatase 95 U/L (46-116); Anion Gap 6.6 mmol/L (3-11); BUN 5 mg/dL (7-18); Bilirubin, Total 0.5 mg/dL (0.2-1.0); CO2 27.4 mmol/L (21.0-32.0); CREATININE 0.8 mg/dL (0.55-1.02); Calcium 8.8 mg/dL (8.5-10.1); Chloride 104 mmol/L (98-107); Estimated GFR 99.09 (mL/min/1.73m2); Glucose 129 mg/dL (74-106); Potassium 3.4 mmol/L (3.5-5.1); Sodium 138 mmol/L (136-145); Total Protein 8.4 g/dL (6.4-8.2)
== END 2023-06-12 15:14 | disposition home or self-care (01) ==
PROVIDERS: PCP Registered Nurse; Visit Provider Registered Nurse
DX: F32.89 Other specified depressive episodes (principal); Z79.899 Other long term (current) drug therapy
CPT/HCPCS: 36415; 80053; 85025

== ENCOUNTER 2025-02-01 09:34 | Emergency (ER) | payer MEDICAID, SELFPAY ==
[2025-02-01 09:39] VITALS: BP 107/69; PULSE 87; RESP 16; TEMP 36.4; O2SAT 98
--- NOTE | 2025-02-01 10:42 | NUR.NOTE ---
Nursing Note: All belongings obtained from the patient, placed in personal patient bags, and labeled with a patient label. Patient form filled out and given to [facility] nurse (Annie Trujillo). Patient kept her glasses due to needing them to see, all other belongings removed from patient's possession and locked in ZB2 locker.
[2025-02-01 10:45] LABS: Abs Immature Grans 0.05 10^3/uL (0.0-0.06); Absolute Eosinophil Count 0.03 10^3/uL (0.0-0.7); Absolute Lymphocyte Count 1.81 10^3/uL (1.2-3.4); Absolute Monocyte Count 0.64 10^3/uL (0.1-0.8); Basophils % 0.3 %; Eosinophils % 0.2 %; HGB 12.7 g/dL (11.2-15.7); Immature Grans % 0.3 %; Lymphocytes % 12.4 %; MCH 27.1 pg (27.0-33.0); MCHC 31.8 % (32.0-36.0); MCV 86 fL (80-95); MPV 10.4 fL (8.0-11.0); Monocytes % 4.4 %; Neutrophils % 82.4 %; Platelet Count 376 10^3/uL (130-400); RBC 4.68 10^6/uL (3.93-5.22); RDW 15.9 % (11.7-14.6); RDW-SD 49.8 fL; WBC 14.59 10^3/uL (4.4-10.8)
[2025-02-01 10:47] LABS: Absolute Basophil Count 0.04 10^3/uL (0.0-0.2); Absolute Neutrophil Count 12.02 10^3/uL (1.2-6.7)
[2025-02-01 11:05] LABS: ALT 18 U/L (14-59); AST 16 U/L (15-37); Albumin 3.4 g/dL (3.4-5.0); Alkaline Phosphatase 97 U/L (46-116); Anion Gap 11.3 mmol/L (3-11); BUN 11 mg/dL (7-18); CO2 22.7 mmol/L (21.0-32.0); CREATININE 0.7 mg/dL (0.55-1.02); Calcium 8.7 mg/dL (8.5-10.1); Chloride 107 mmol/L (98-107); Estimated GFR 114.88 (mL/min/1.73m2); Glucose 101 mg/dL (74-106); Potassium 3.6 mmol/L (3.5-5.1); Sodium 141 mmol/L (136-145)
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
--- NOTE | 2025-02-01 18:26 | CMSP_ITS ---
Date of service: 02/01/25 Time of Service: 18:27 Care Management Safety Plan Status Status: Voluntary Reason for Wait Reason for Wait: Inpatient Admission Safety Plan Safety Plan: VOLUNTARY FOR INPATIENT PSYCHIATRIC STABILIZATION.? Patient is appropriate in all interactions since arriving at [facility]; Pt has demonstrated appropriate coping and communication skills, has articulated his or her needs and concerns and is fully engaged during staff interactions. Safety plan has been established with patient, and care team, to adhere to patient goals, identify restrictions based on behavioral status, address nutrition, and determine allowed personal belongings, tools for hygiene and personal care. Determine level of activity including ambulation, level of superv ision, visitors, and determine privileges based on behaviors and level of engagement by pt. VOLUNTARY SAFETY PLAN: 1. Will remain on suicide precautions, in paper clothes 2. Will remain in Zone B under direct supervision of one-on-one staff at all times provided by [employer]; NOAH, APPLICATION SECURITY DEVELOPER supervisor tower. 3. May have paper cups, plates, finger foods as well as a cardboard spoon with which to eat meals. 4. Follow [facility] Management of the Admitted Behavioral Health Patient policy. 5. Shower available in Zone B without restriction. 6. Personal belongings-soft items permitted at RN discretion. 7. Visitors- mother and son may visit, at RN discretion. 8. Activities: soft cart items, hospital tablets (Netflix/Humberto+/music) approved per RN discretion. Tablet may be used for 2 hrs at a time to allow for other patients to use it. 9.? Bathroom available in Zone B without restriction. 10. Phone: limited to [facility] cordless phone at RN discretion. Due to VOLUNTARY status, if patient wishes to leave [facility], staff will contact [facility] Crisis Screener ([phone]) and Master Data Analyst ([phone]) as soon as possible. In the event of elopement, notify [facility] Police ([phone]). Patient is currently voluntarily at [facility] and seeking inpatient admission when a bed becomes available. [facility] Frontline Social Media Content Manager will continue seeking placement. Please contact the Master Data Analyst ([phone]) and [facility] Social Media Content Manager ([phone]) for any needed changes in the Safety Plan. Safety plan has been provided to interdepartmental care team.
--- NOTE | 2025-02-01 18:26 | PDOC.CMSAFE ---
Date of service: 02/01/25 Time of Service: 18:27 Care Management Safety Plan Status Status: Voluntary Reason for Wait Reason for Wait: Inpatient Admission Safety Plan Safety Plan: VOLUNTARY FOR INPATIENT PSYCHIATRIC STABILIZATION.? Patient is appropriate in all interactions since arriving at [facility]; Pt has demonstrated appropriate coping and communication skills, has articulated his or her needs and concerns and is fully engaged during staff interactions. Safety plan has been established with patient, and care team, to adhere to patient goals, identify restrictions based on behavioral status, address nutrition, and determine allowed personal belongings, tools for hygiene and personal care. Determine level of activity including ambulation, level of supervision, visitors, and determine privileges based on behaviors and level of engagement by pt. VOLUNTARY SAFETY PLAN: 1. Will remain on suicide precautions, in paper clothes 2. Will remain in Zone B under direct supervision of one-on-one staff at all times provided by [employer]; NOAH, LOGGING RAFTER LABORER door attendant. 3. May have paper cups, plates, finger foods as well as a cardboard spoon with which to eat meals. 4. Follow [facility] Management of the Admitted Behavioral Health Patient policy. 5. Shower available in Zone B without restriction. 6. Personal belongings-soft items permitted at RN discretion. 7. Visitors- mother and son may visit, at RN discretion. 8. Activities: soft cart items, hospital tablets (Netflix/[place]+/music) approved per RN discretion. Tablet may be used for 2 hrs at a time to allow for other patients to use it. 9.? Bathroom available in Zone B without restriction. 10. Phone: limited to [facility] cordless phone at RN discretion. Due to VOLUNTARY status, if patient wishes to leave [facility], staff will contact [facility] Crisis Screener ([phone]) and Stave Block Splitter ([phone]) as soon as possible. In the event of elopement, notify [place] [employer] Police ([phone]). Patient is currently voluntarily at [facility] and seeking inpatient admission when a bed becomes available. [facility] Frontline Subway Train Operator will continue seeking placement. Please contact the Stave Block Splitter ([phone]) and [facility] Subway Train Operator ([phone]) for any needed changes in the Safety Plan. Safety plan has been provided to interdepartmental care team.
--- NOTE | 2025-02-01 18:55 | CMPROGNOTE_ITS ---
Date of service: 02/01/25 Time of Service: 18:55 Care Management Progress Note Progress Note Text Progress Note Text: CM huddled with ED staff regarding Kristen's plan of care. Per RN, Kristen has been presenting with some manic features, but is redirectable and pleasant. Per report, she has been off her medications since last year because she thought she could handle it. Her mother and son visited today to complete some personal paperwork; her mother is currently caring for her son until she returns home. Per chart review, Kristen is from [place], [place], which is about [place] min from [facility]. Kristen is voluntary, seeking inpatient psychiatric treatment. Referrals were sent to facilities; safety plan in place. CM will continue to follow. Social Determinants of Health Screening Will the Patient Participate in the Screening?: Declined to provide
[2025-02-01 20:36] LABS: *AMPHETAMINES SCREEN URINE Negative (Negative); *BARBITURATES SCREEN URINE Negative (Negative); *BENZODIAZEPINES SCREEN URINE Negative (Negative); Cannabinoids THC Negative (Negative); Cocaine Screen,Urine Negative (Negative); METHADONE URINE SCREEN Negative (Negative); OPIATES URINE SCREEN Negative (Negative)
[2025-02-01 20:38] LABS: Tricyclic Antidepressants Negative (Negative)
--- NOTE | 2025-02-02 05:20 | W.EDPROG ---
Date of service: 02/02/25 Time of Service: 05:20 Medical Decision Making Patient remained stable throughout the night. No interventions needed. Pending placement and reassessment. Quality:SDOH Health Related Social Needs: No Data to Display Discharge Plan Discharge Details Chief Complaint: PsychEval Primary Care Provider: Chelsey Coats ED Provider: Estuardo Clark Home Meds and New Rx's Prescriptions: No Action valacyclovir 500 mg tablet 500 mg PO BID PRN Rx Instructions: Take at the onset of symptoms for three days.
--- NOTE | 2025-02-02 08:24 | W.EDPROG ---
Date of service: 02/02/25 Time of Service: 08:24 Medical Decision Making I received signout on this 35-year-old female in the emergency department voluntarily in setting of suicidal ideation. Patient is medically cleared. No active behavioral issues last shift. Will monitor and reassess as needed before signing patient out to the oncoming evening provider. 2:30 PM I spoke with Per from [facility]. Patient had a safety plan. I met with the patient. She felt comfortable with this plan. She reports that she does not own handguns. We discussed that she should return to the emergency department at any time if she did not feel comfortable with this plan. She understood her return indications and was discharged with an empiric trial of expectant outpatient management. Quality:SDOH Health Related Social Needs: No Data to Display Discharge Plan Disposition Patient Disposition: Home Discharge Details Clinical Impression: Suicidal ideation Primary Care Provider: Chelsey Coats ED Provider: Armando Rosas Home Meds and New Rx's Prescriptions: Continued valacyclovir 500 mg tablet 500 mg PO BID PRN Rx Instructions: Take at the onset of symptoms for three days. Discharge Instructions Additional Instructions: You were seen in the emergency department for your thoughts of self-harm. You are provided with a safety plan. If you do not feel comfortable with this plan or if you develop nausea or vomiting that does not stop please return to the emergency department. Discharge Data Discharge Date/Time-TO BE ENTERED AT DEPARTURE: 02/02/25 15:07
--- NOTE | 2025-02-02 16:34 | PDOC.MHPN2 ---
Date of service: 02/02/25 Time of Service: 12:06 PHQ-9 Over the last 2 weeks, how often have you been bothered by any of the following problems? 1. Little interest or pleasure in doing things: more than half the days 2. Feeling down, depressed, or hopeless: more than half the days 3. Trouble falling or staying asleep, or sleeping too much: more than half the days 4. Feeling tired or having little energy: more than half the days 5. Poor appetite or overeating: more than half the days 6. Feeling bad about yourself - or that you are a failure or have let yourself and your family down: more than half the days 7. Trouble concentrating on things, such as reading the newspaper or watching television: more than half the days 8. Moving or speaking so slowly that other people could have noticed? - Or the opposite - being so fidgety or restless that you have been moving around a lot more than usual: not at all 9. Thoughts that you would be better off or of hurting yourself in some way: several days Total score: 15 If you checked off any problems, how difficult have these problems made it for you to do your work, take care of things at home, or get along with other people?: very difficult PHQ-9 Results: Positive Source: Developed by Drs. Quinn Steward, Jayleen Jimenez, Kwan Wu and colleagues, with an educational diana from [employer]. Suicide Severity Rate CSSRS Have you wished you were or wished you could go to sleep and not wake up?: Yes Have you actually had any thoughts of killing yourself?: Yes CSSRS2 Have you been thinking about how you might do this?: No Have you had these thoughts and had some intention of acting on them?: No Have you started to work out or worked out the details of how to kill yourself? Do you intend to carry out this plan?: No CSSRS3 Have you ever done anything, started to do anything or prepared to do anything to end your life?: No CSSRS4 Was this within the past three months?: No Screening Score Total Score: 4 Screening: Positive Mental Health Emergency Note Release [facility] release signed:: Yes Reason for Visit Ms Santana is a 35 year old single female who has just left her current partner and is moving back in with her mother. The client states having eaten a breakfast sandwich and some fruit. The client states that she woke frequently from sleep throughout the night. The client states she is still experiencing suicidal ideation but has no plan. The client denies HI. The client has [place] Medicaid and safety planned with this clinician in order to pursue other avenues of help. This clinician provided the client with information on mental health agencies in the client's area of [place] to outreach to for individual therapy. In the last 2 weeks has the pt presented for ES prior to today?: Yes, presented at Client Information Client is: New Well Housed: Yes Non Suicidal Self Injury Current: No History: No Safety Risk/Harm to Self or Others Current Ideation to Harm Self or Others: Yes to self. Intent: no, has no intent. Plan: no.does not have a plan. History of suicide attempt: No history of suicide attempt reported Risk: Does risk to harm exist?: No Risk: N/A Duty to warn indicated: No Asssessment/Mental Status Appearance: Unremarkable and Disheveled Attitude: Cooperative and Friendly Behavior: Unremarkable Speech: Soft Affect: Expansive Mood: Stressed and Anxious Thought process: Goal directed Hallucinations: No Delusions: No Attention: Unremarkable Perception: Not impaired Orientation: Fully orientated Memory: Intact Insight: Fair Judgement: Fair Neurovegetative Symptoms Sleep: Decrease Appetitie: No change Interests: No change Energy: No change Libido: Not applicable Substance Use: Do you use nicotine?: No Have you used substances in the last 7 days?: No Additional Issues: Assaultive/Threatening Behavior: No Medical Concerns: No Client engaged in active self harm w/weapon: No Threatening to run away: No Child reported abuse/neglect: No Voluntarily presenting for services: Yes Domestic violence is a concern: No Extreme Psychosis or extreme behavior is present: No Impression Ms Santana is a 35 year old single female who has just left her current partner and is moving back in with her mother. The client states having eaten a breakfast sandwich and some fruit. The client states that she woke frequently from sleep throughout the night. The client states she is still experiencing suicidal ideation but has no plan. The client denies HI. The client has [place] Medicaid and safety planned with this clinician in order to pursue other avenues of help. This clinician provided the client with information on mental health agencies in the client's area of [place] to outreach to for individual therapy. Plan/Disposition Recommended Disposition: Therapy. Plan: The client safety planned. Reports/communication Outcome discussed with: ED/Personnel
--- NOTE | 2025-02-02 16:48 | PDOC.CMPRO ---
Date of service: 02/02/25 Time of Service: 16:48 Care Management Progress Note Progress Note Text Progress Note Text: Kristen discharged home today after creating a safety plan with [facility]. She was transported by her mother, and was happy about her plan. Per report, Kristen has [place] [facility] and plans to access outpatient support in [place], closer to home. Social Determinants of Health Screening Will the Patient Participate in the Screening?: Declined to provide
--- NOTE | 2025-02-02 21:00 | NUR.NOTE ---
This HS Christiano Buenrostro accessed pt chart for Fay @ [facility] for information re: dispo of patient. This was accessed per request for continuation of care purposes.
== END 2025-02-02 15:07 | disposition home or self-care (01) ==
PROVIDERS: Physician Assistant; Emergency Provider Emergency Medicine; PCP Registered Nurse
DX: R45.851 Suicidal ideations (principal); F90.9 Attention-deficit hyperactivity disorder, unspecified type; F60.3 Borderline personality disorder; Z87.891 Personal history of nicotine dependence
CPT/HCPCS: 00123; 36415; 80053; 80307; 81025; 96127; 99285; 85025